=== PATIENT | male | born 1940 | race Caucasian/White ===

== ENCOUNTER 2017-06-24 12:22 | Inpatient (IN) | payer OTHER ==
[~2017-06-24] VITALS: Ht 165.1 cm; Wt 63.8 kg
[2017-06-24 13:29] LABS: BASOPHIL % 0.3 % (0-2); RED CELL DISTRIBUTION WIDTH 13.9 % (11.5-14.5)
[2017-06-24 13:30] LABS: PLATELET COUNT 409 x10^3mcL (130-400)
[2017-06-24 13:38] LABS: CALCIUM 8.8 mg/dL (8.5-10.1); CARBON DIOXIDE 25.8 mmol/L (21-32); CHLORIDE SERUM 105 mmol/L (98-107); CREATININE SERUM 1.7 mg/dL (0.7-1.3); GLUCOSE SERUM 126 mg/dL (74-106); POTASSIUM SERUM 4.5 mmol/L (3.5-5.1); SODIUM SERUM 139 mmol/L (136-145)
[2017-06-24 13:42] LABS: ALBUMIN 3.3 g/dL (3.4-5.0); ALKALINE PHOSPHATASE 105 U/L (46-116); ALT/SGPT 21 U/L (16-63); AST/SGOT 20 U/L (15-37); BILIRUBIN TOTAL 0.5 mg/dL (0.20-1.00); LIPASE 125 IU/L (73-393); TOTAL PROTEIN, SERUM 7.9 g/dL (6.4-8.2)
[2017-06-24 13:57] LABS: CK-MB 0.8 ng/mL (0-3.6)
[2017-06-24] MEDS ORDERED: LABETALOL HYDR300 MG PO (14:55)
[2017-06-24] MEDS ORDERED: LISINOPRIL40 MG PO (14:56)
[2017-06-24] MEDS ORDERED: LEVOFLOXACIN500 M1 PO (14:56)
[2017-06-24] MEDS ORDERED: BAYER ASPIRIN R81 MG PO (14:56)
[2017-06-24] MEDS ORDERED: NOR10 PO (14:56)
[2017-06-24 15:02] LABS: UA SPECIFIC GRAVITY 1.025 (1.005-1.035); microscopic required? YES; urine erythrocyte NEGATIVE (NEGATIVE)
[2017-06-24 15:36] VITALS: BP 143/55
[2017-06-24 16:19] LABS: MAGNESIUM 2.5 mg/dL (1.8-2.4); PHOSPHOROUS 5.1 mg/dL (2.5-4.9)
[2017-06-24 16:20] LABS: CHOLESTEROL/HDL RATIO 5.5
[2017-06-24 16:28] LABS: T3 TOTAL 0.99 ng/mL
[2017-06-24 16:30] LABS: FREE T4 1.02 ng/dL (0.76-1.46); FREE THYROXINE INDEX 2.8 ug/dL (1.4-4.5); T4(THYROXINE) 8.2 ug/dL (4.7-13.3)
[2017-06-24 17:15] VITALS: BP 143/55
[2017-06-24 20:30] VITALS: BP 121/51
[2017-06-25 05:33] VITALS: BP 150/50
[2017-06-25 06:54] LABS: BASOPHIL % 0.4 % (0-2); PLATELET COUNT 373 x10^3mcL (130-400); RED CELL DISTRIBUTION WIDTH 13.6 % (11.5-14.5)
[2017-06-25 06:57] LABS: CALCIUM 8.5 mg/dL (8.5-10.1); CHLORIDE SERUM 108 mmol/L (98-107); CREATININE SERUM 1.2 mg/dL (0.7-1.3); GLUCOSE SERUM 108 mg/dL (74-106); MAGNESIUM 2.1 mg/dL (1.8-2.4); POTASSIUM SERUM 4.3 mmol/L (3.5-5.1); SODIUM SERUM 139 mmol/L (136-145)
[2017-06-25 09:49] VITALS: BP 164/62
[2017-06-25 12:49] VITALS: BP 145/51
[2017-06-25 17:15] VITALS: BP 135/50
[2017-06-25 21:12] VITALS: BP 126/51
[2017-06-26 06:35] VITALS: BP 154/60
[2017-06-26 08:59] VITALS: BP 165/61
[2017-06-26] MEDS ORDERED: CLINDAMYCIN HC300 MG PO (09:38)
[2017-06-26] MEDS ORDERED: LEVOFLOXACIN500 M1 PO (09:39)
[2017-06-26] MEDS ORDERED: LAC PO (09:40)
[2017-06-26 10:14] VITALS: BP 165/61
== END 2017-06-26 11:28 | disposition home or self-care (01) | DRG 871 ==
LOC: ED 12:22 → DU 14:19
PROVIDERS: Emergency Medicine; ADMIT Student in an Organized Health Care Education/Training Program
DX: A41.9 Sepsis, unspecified organism (principal); N17.0 Acute kidney failure with tubular necrosis; J69.0 Pneumonitis due to inhalation of food and vomit; N39.0 Urinary tract infection, site not specified; E44.1 Mild protein-calorie malnutrition; R65.20 Severe sepsis without septic shock; R55 Syncope and collapse; J45.909 Unspecified asthma, uncomplicated; E83.39 Other disorders of phosphorus metabolism; I10 Essential (primary) hypertension; D63.8 Anemia in other chronic diseases classified elsewhere; E78.5 Hyperlipidemia, unspecified; Z68.23 Body mass index [BMI] 23.0-23.9, adult; Z87.891 Personal history of nicotine dependence; Z85.46 Personal history of malignant neoplasm of prostate
CPT/HCPCS: 76770; 83880; 84439; J0696; J1956; J3490; J7030; Q0092

== ENCOUNTER → 2017-09-19 | Outpatient (CLI) | payer OTHER ==
[~2017-09-19] MED LIST: BAYER ASPIRIN R81 MG PO; CLINDAMYCIN HC300 MG PO; LABETALOL HYDR300 MG PO; LAC PO; LEVOFLOXACIN500 M1 PO; LISINOPRIL40 MG PO; NOR10 PO
== END | disposition home or self-care (01) ==
LOC: US 11:00
PROC: B54DZZZ Ultrasonography of Bilateral Lower Extremity Veins (ICD-10-PCS; principal; 2017-09-19)
PROC: B44HZZZ Ultrasonography of Bilateral Lower Extremity Arteries (ICD-10-PCS; 2017-09-19)
DX: M79.89 Other specified soft tissue disorders (principal)